=== PATIENT | female | born 1960 | race Caucasian/White ===

== ENCOUNTER → 2017-03-20 | Outpatient (CLI) | payer OTHER ==
[~2017-03-20] MED LIST: ALLEGRA-D 24HOU1 T24 PO; MASON NATURAL2000 IU; SYNTHROID0.088 MG/T PO; TRILIPIX45 MG PO; ZOLOFT 50MG50 MG PO
[2017-03-20 06:43] LABS: BASO # 0.1 (0.0-0.2); BASO % 2.1 % (0.0-2.0); EOS # 0.6 (0.0-0.7); EOS % 9.3 % (0-4.0); GRAN # 2.8 (1.4-6.5); GRAN % 46.3 % (42.2-75.2); HEMOGLOBIN 14.9 g/dl (12.5-16.0); LYMPH # 2.1 (1.2-3.4); LYMPH % 33.6 % (20.0-51.0); MEAN CELL VOLUME 92 fl (80.0-100.0); MEAN CORPUSCULAR HEMOGLOBIN 32 pg (27.0-31.0); MEAN CORPUSCULAR HGB CONC 35 g/dl (33.0-37.0); MEAN PLATELET VOLUME 10.6 fl (7.4-10.4); MONO # 0.5 (0.1-0.6); MONO % 8.5 % (1.7-9.3); PLATELET COUNT 269 K/mm3 (130-400); RED BLOOD COUNT 4.66 M/mm3 (4.10-5.30); REDCELL DISTRIBUTION WIDTH-CV 11.8 % (11.5-14.5); WHITE BLOOD COUNT 6.1 K/mm3 (4.8-10.8)
[2017-03-20 06:58] LABS: PH 5 (5-8); SQUAMOUS EPITHELIAL 0-2 /hpf; URINE APPEARANCE Clear; URINE BACTERIA None Seen /hpf; URINE BILIRUBIN Negative (NEGATIVE); URINE BLOOD 1+ (NEGATIVE); URINE COLOR Yellow; URINE GLUCOSE Negative (NEGATIVE); URINE KETONE Negative (NEGATIVE); URINE RBC 0-2 /hpf; URINE UROBILINOGEN Negative (NEGATIVE); URINE WBC 0-2 /hpf
[2017-03-20 06:58] LABS: ADJUSTED CALCIUM 9.4 mg/dL (8.4-10.2); ALBUMIN 4.1 gm/dL (3.5-5.0); BILIRUBIN,TOTAL 0.7 mg/dL (0.0-1.0); CALCIUM 9.5 mg/dL (8.4-10.2); CREATININE, serum 0.93 mg/dL (0.52-1.25); POTASSIUM 4.2 mmol/L (3.4-5.0)
[2017-03-20 07:10] LABS: TOTAL PROTEIN 6.7 gm/dL (6.4-8.2)
[2017-03-20 07:24] LABS: THYROID STIMULATING HORMONE 2.59 uIU/mL (0.465-4.680)
== END ==
LOC: COL.LAB 06:20
PROVIDERS: Internal Medicine
DX: E03.9 Hypothyroidism, unspecified (principal); E55.9 Vitamin D deficiency, unspecified; Z00.00 Encounter for general adult medical examination without abnormal findings

== ENCOUNTER → 2017-05-23 | Outpatient (CLI) | payer OTHER | LOC: MC.RAD 14:40 | DX: Z12.31 Encounter for screening mammogram for malignant neoplasm of breast (principal) ==

== ENCOUNTER → 2017-05-24 | Outpatient (REF) | LOC: WSOH 08:30 | DX: Z02.89 Encounter for other administrative examinations (principal) ==

== ENCOUNTER → 2017-05-26 | Outpatient (CLI) | payer OTHER | LOC: MC.RAD 13:00 | DX: N63 Unspecified lump in breast (principal) ==

== ENCOUNTER 2017-06-28 09:46 | Emergency (ER) | payer OTHER ==
[~2017-06-28] VITALS: Ht 170.2 cm; Wt 84.1 kg
[~2017-06-28 09:46] MED LIST changes: -MASON NATURAL2000 IU; -TRILIPIX45 MG PO; -ZOLOFT 50MG50 MG PO
[2017-06-28 09:55] VITALS: TEMP 96.9
[2017-06-28] MEDS ORDERED: TRILIPIX45 MG PO (09:59)
[2017-06-28] MEDS ORDERED: MASON NATURAL2000 IU (09:59)
[2017-06-28] MEDS ORDERED: ZOLOFT 50MG50 MG PO (10:00)
[2017-06-28 10:59] LABS: BASO # 0.1 (0.0-0.2); BASO % 1.3 % (0.0-2.0); EOS # 0.4 (0.0-0.7); EOS % 5.1 % (0-4.0); GRAN % 55.8 % (42.2-75.2); HEMATOCRIT 47.3 % (37.0-47.0); LYMPH % 28.8 % (20.0-51.0); MEAN CELL VOLUME 94 fl (80.0-100.0); MEAN CORPUSCULAR HEMOGLOBIN 32 pg (27.0-31.0); MEAN CORPUSCULAR HGB CONC 34 g/dl (33.0-37.0); MEAN PLATELET VOLUME 10.6 fl (7.4-10.4); MONO # 0.6 (0.1-0.6); MONO % 8.4 % (1.7-9.3); PLATELET COUNT 283 K/mm3 (130-400); RED BLOOD COUNT 5.04 M/mm3 (4.10-5.30); REDCELL DISTRIBUTION WIDTH-CV 11.9 % (11.5-14.5); WHITE BLOOD COUNT 7.1 K/mm3 (4.8-10.8)
[2017-06-28 11:03] LABS: CREATININE, serum 0.86 mg/dL (0.52-1.25); POTASSIUM 3.9 mmol/L (3.4-5.0)
[2017-06-28 11:27] VITALS: BP 146/88; PULSE 66
== END 2017-06-28 11:50 | disposition home or self-care (01) ==
LOC: COL.ER 09:46
PROVIDERS: Emergency Medicine
DX: H53.9 Unspecified visual disturbance (principal); I10 Essential (primary) hypertension; G43.109 Migraine with aura, not intractable, without status migrainosus; E03.9 Hypothyroidism, unspecified; H52.209 Unspecified astigmatism, unspecified eye

== ENCOUNTER → 2017-07-11 | Outpatient (REF) ==
[~2017-07-11] MED LIST changes: +MASON NATURAL2000 IU; +TRILIPIX45 MG PO; +ZOLOFT 50MG50 MG PO
== END ==
LOC: WSOH 11:03
DX: Z02.89 Encounter for other administrative examinations (principal)

== ENCOUNTER → 2017-09-04 | Outpatient (CLI) | payer OTHER | LOC: COL.RAD 10:16 | DX: R06.02 Shortness of breath (principal); R91.8 Other nonspecific abnormal finding of lung field ==

== ENCOUNTER → 2018-01-01 | Outpatient (CLI) | payer OTHER | LOC: MC.RAD 07:14 | DX: N63.20 Unspecified lump in the left breast, unspecified quadrant (principal) ==

== ENCOUNTER → 2018-07-19 | Outpatient (CLI) | payer OTHER | LOC: MC.RAD 14:00 | DX: N63.22 Unspecified lump in the left breast, upper inner quadrant (principal) | CPT/HCPCS: G0279 ==

== ENCOUNTER 2018-08-22 06:07 | Emergency (ER) | payer OTHER ==
[~2018-08-22] VITALS: Ht 170.2 cm; Wt 85.5 kg
[2018-08-22 06:10] VITALS: BP 160/72; TEMP 98.1
[2018-08-22] MEDS ORDERED: FLEXERIL 1010 MG/TAB PO (07:09)
[2018-08-22 07:49] VITALS: PULSE 61
== END 2018-08-22 07:49 | disposition home or self-care (01) ==
LOC: COL.ER 06:07
DX: M25.551 Pain in right hip (principal); M53.3 Sacrococcygeal disorders, not elsewhere classified; E03.9 Hypothyroidism, unspecified; E78.5 Hyperlipidemia, unspecified; V43.52XA Car driver injured in collision with other type car in traffic accident, initial encounter

== ENCOUNTER 2018-08-24 16:18 | Emergency (ER) | payer OTHER ==
[~2018-08-24] VITALS: Ht 170.2 cm; Wt 85.5 kg
[~2018-08-24 16:18] MED LIST changes: +FLEXERIL 1010 MG/TAB PO
[2018-08-24 17:26] LABS: BASO # 0.1 (0.0-0.2); BASO % 1.4 % (0.0-2.0); EOS # 0.7 (0.0-0.7); EOS % 7.1 % (0-4.0); GRAN # 5.2 (1.4-6.5); GRAN % 56.6 % (42.2-75.2); HEMOGLOBIN 14.9 g/dl (12.5-16.0); LYMPH # 2.5 (1.2-3.4); LYMPH % 27.9 % (20.0-51.0); MEAN CELL VOLUME 93 fl (80.0-100.0); MEAN CORPUSCULAR HEMOGLOBIN 32 pg (27.0-31.0); MEAN CORPUSCULAR HGB CONC 34 g/dl (33.0-37.0); MEAN PLATELET VOLUME 10.5 fl (7.4-10.4); MONO # 0.6 (0.1-0.6); MONO % 6.7 % (1.7-9.3); PLATELET COUNT 294 K/mm3 (130-400); RED BLOOD COUNT 4.71 M/mm3 (4.10-5.30)
[2018-08-24 17:38] LABS: ALANINE AMINOTRANSFERASE 28 U/L (9-52); ALBUMIN 4.2 gm/dL (3.5-5.0); ALKALINE PHOSPHATASE 61 U/L (50-136); ANION GAP 7 mmol/L (7-16); AST,SGOT 19 U/L (15-37); BILIRUBIN,TOTAL 0.3 mg/dL (0.0-1.0); BLOOD UREA NITROGEN 17 mg/dL (7-17); C-REACTIVE PROTEIN 0.9 mg/dL (0.0-0.9); CALCIUM 9.4 mg/dL (8.4-10.2); CARBON DIOXIDE 30 mmol/L (22-30); CHLORIDE 105 mmol/L (98-107); CREATININE, serum 0.94 mg/dL (0.52-1.25); GLUCOSE 83 mg/dL (74-106); POTASSIUM 3.7 mmol/L (3.4-5.0); SODIUM 142 mmol/L (137-145); TOTAL PROTEIN 7.2 gm/dL (6.4-8.2)
[2018-08-24 17:47] LABS: TROPONIN-I < 0.012 ng/mL (0.000-0.034)
[2018-08-24 18:05] VITALS: BP 128/64; PULSE 80; TEMP 98.2
[2018-08-24] MEDS ORDERED: MEDROL 4MG DOSPA4 MG PO (18:06)
== END 2018-08-24 18:05 | disposition home or self-care (01) ==
LOC: COL.ER 16:18
PROVIDERS: Emergency Medicine
DX: M54.12 Radiculopathy, cervical region (principal); E78.5 Hyperlipidemia, unspecified
CPT/HCPCS: J7512

== ENCOUNTER → 2018-12-17 | Outpatient (CLI) | payer OTHER ==
[~2018-12-17] MED LIST changes: +MEDROL 4MG DOSPA4 MG PO
[2018-12-17 05:37] LABS: HEMATOCRIT 44.3 % (37.0-47.0); HEMOGLOBIN 15.3 g/dl (12.5-16.0); MEAN CELL VOLUME 93 fl (80.0-100.0); MEAN CORPUSCULAR HEMOGLOBIN 32 pg (27.0-31.0); MEAN CORPUSCULAR HGB CONC 35 g/dl (33.0-37.0); MEAN PLATELET VOLUME 9.7 fl (7.4-10.4); PLATELET COUNT 288 K/mm3 (130-400); RED BLOOD COUNT 4.78 M/mm3 (4.10-5.30); REDCELL DISTRIBUTION WIDTH-CV 11.8 % (11.5-14.5)
[2018-12-17 05:57] LABS: ALBUMIN 4.1 gm/dL (3.5-5.0); BILIRUBIN,TOTAL 0.5 mg/dL (0.0-1.0); CALCIUM 9.4 mg/dL (8.4-10.2); CHOLESTEROL RISK RATIO 5.4; CREATININE, serum 0.87 mg/dL (0.52-1.25); POTASSIUM 4.1 mmol/L (3.4-5.0)
[2018-12-17 06:27] LABS: THYROID STIMULATING HORMONE 20.1 uIU/mL (0.465-4.680)
== END ==
LOC: COL.LAB 05:10
PROVIDERS: Family Medicine
DX: Z01.89 Encounter for other specified special examinations (principal)

== ENCOUNTER → 2019-01-30 | Outpatient (CLI) | payer OTHER ==
[2019-01-30 06:23] LABS: BILIRUBIN,TOTAL 0.3 mg/dL (0.0-1.0); CALCIUM 9.6 mg/dL (8.4-10.2); CREATININE, serum 0.86 mg/dL (0.52-1.25); TOTAL PROTEIN 6.9 gm/dL (6.4-8.2)
[2019-01-30 06:53] LABS: THYROID STIMULATING HORMONE 0.118 uIU/mL (0.465-4.680)
== END ==
LOC: COL.LAB 05:49
PROVIDERS: Family Medicine
DX: E03.9 Hypothyroidism, unspecified (principal); R73.9 Hyperglycemia, unspecified

== ENCOUNTER → 2019-05-10 | Outpatient (CLI) | payer OTHER ==
[2019-05-10 06:52] LABS: MUCOUS Present /lpf; PH 6 (5-8); SQUAMOUS EPITHELIAL 0-2 /hpf; URINE APPEARANCE Cloudy; URINE BACTERIA Moderate /hpf; URINE BILIRUBIN Negative (NEGATIVE); URINE BLOOD 1+ (NEGATIVE); URINE COLOR Yellow; URINE GLUCOSE Negative (NEGATIVE); URINE KETONE Negative (NEGATIVE); URINE LEUKOCYTE ESTERASE 3+ (NEGATIVE); URINE NITRATE Positive (NEGATIVE); URINE PROTEIN(semi-quant) Negative (NEGATIVE); URINE UROBILINOGEN Negative (NEGATIVE); URINE WBC 20-50 /hpf
[2019-05-10 07:00] LABS: COLLECTION METHOD CLEAN CATCH
== END ==
LOC: COL.LAB 05:49
PROVIDERS: Family Medicine
DX: R30.0 Dysuria (principal)

== ENCOUNTER 2019-07-14 14:18 | Emergency (ER) | payer OTHER ==
[~2019-07-14] VITALS: Ht 170.2 cm; Wt 80.5 kg
[2019-07-14 14:28] VITALS: BP 136/63; TEMP 99.1
[2019-07-14] MEDS ORDERED: PREDNISONE20 MG PO (17:02)
[2019-07-14] MEDS ORDERED: LEVAQUIN 5500 MG/TA1 PO (17:02)
[2019-07-14 17:37] VITALS: PULSE 99
== END 2019-07-14 18:06 | disposition home or self-care (01) ==
LOC: COL.ER 14:18
DX: J45.909 Unspecified asthma, uncomplicated (principal); R59.0 Localized enlarged lymph nodes; E03.9 Hypothyroidism, unspecified; F03.90 Unspecified dementia, unspecified severity, without behavioral disturbance, psychotic disturbance, mood disturbance, and anxiety; E78.00 Pure hypercholesterolemia, unspecified
CPT/HCPCS: J7512

== ENCOUNTER → 2019-09-16 | Outpatient (CLI) | payer OTHER ==
[~2019-09-16] MED LIST changes: +LEVAQUIN 5500 MG/TA1 PO; +PREDNISONE20 MG PO
== END ==
LOC: MC.RAD 14:30
DX: Z12.31 Encounter for screening mammogram for malignant neoplasm of breast (principal); R92.2 Inconclusive mammogram

== ENCOUNTER → 2020-04-03 | Outpatient (CLI) | payer OTHER | LOC: COL.RAD 13:51 | DX: M19.012 Primary osteoarthritis, left shoulder (principal); M75.82 Other shoulder lesions, left shoulder ==

== ENCOUNTER → 2020-05-21 | Outpatient (CLI) | payer OTHER ==
[2020-05-21 06:30] LABS: COLLECTION METHOD CLEAN CATCH
[2020-05-21 06:57] LABS: PH 5 (5-8); SQUAMOUS EPITHELIAL None Seen /hpf; URINE APPEARANCE Cloudy; URINE BACTERIA Many /hpf; URINE BILIRUBIN Negative (NEGATIVE); URINE BLOOD 1+ (NEGATIVE); URINE COLOR Yellow; URINE GLUCOSE Negative (NEGATIVE); URINE KETONE Negative (NEGATIVE); URINE LEUKOCYTE ESTERASE 3+ (NEGATIVE); URINE NITRATE Positive (NEGATIVE); URINE PROTEIN(semi-quant) Negative (NEGATIVE); URINE UROBILINOGEN Negative (NEGATIVE)
[2020-05-21 07:34] LABS: ALBUMIN 4.1 gm/dL (3.5-5.0); BILIRUBIN,TOTAL 0.5 mg/dL (0.0-1.0); CALCIUM 9.3 mg/dL (8.4-10.2); CHOLESTEROL RISK RATIO 3.3; CREATININE, serum 0.99 (0.52-1.25)
[2020-05-21 08:03] LABS: THYROID STIMULATING HORMONE 0.407 uIU/mL (0.465-4.680)
== END ==
LOC: COL.LAB 06:15
PROVIDERS: Family Medicine
DX: Z13.9 Encounter for screening, unspecified (principal); E03.9 Hypothyroidism, unspecified

== ENCOUNTER → 2021-01-01 | Outpatient (CLI) | payer OTHER ==
[2021-01-01 05:53] LABS: HEMATOCRIT 44.6 % (37.0-47.0); HEMOGLOBIN 15.1 g/dl (12.5-16.0); MEAN CELL VOLUME 91 fl (80.0-100.0); MEAN CORPUSCULAR HEMOGLOBIN 31 pg (27.0-31.0); MEAN CORPUSCULAR HGB CONC 34 g/dl (33.0-37.0); MEAN PLATELET VOLUME 10.3 fl (7.4-10.4); PLATELET COUNT 329 K/mm3 (130-400)
[2021-01-01 05:58] LABS: ALBUMIN 4.4 gm/dL (3.5-5.0); BILIRUBIN,TOTAL 0.6 mg/dL (0.0-1.0); CALCIUM 9.6 mg/dL (8.4-10.2); CHOLESTEROL RISK RATIO 3.4; CREATININE, serum 0.95 (0.52-1.25); POTASSIUM 4.2 mmol/L (3.4-5.0); TOTAL PROTEIN 7.3 gm/dL (6.4-8.2)
[2021-01-01 06:27] LABS: THYROID STIMULATING HORMONE 0.32 uIU/mL (0.465-4.680)
== END ==
LOC: COL.LAB 05:23
PROVIDERS: Family Medicine
DX: Z01.89 Encounter for other specified special examinations (principal)

== ENCOUNTER → 2021-02-05 | Outpatient (CLI) | payer OTHER ==
[2021-02-05 09:27] LABS: BASO # 0.2 (0.0-0.2); BASO % 1.7 % (0.0-2.0); EOS # 0.9 (0.0-0.7); EOS % 9.4 % (0-4.0); GRAN # 5.5 (1.4-6.5); GRAN % 57.7 % (42.2-75.2); HEMATOCRIT 45.4 % (37.0-47.0); HEMOGLOBIN 15.1 g/dl (12.5-16.0); LYMPH # 2.2 (1.2-3.4); LYMPH % 23.4 % (20.0-51.0); MEAN CELL VOLUME 91 fl (80.0-100.0); MEAN CORPUSCULAR HEMOGLOBIN 30 pg (27.0-31.0); MEAN CORPUSCULAR HGB CONC 33 g/dl (33.0-37.0); MEAN PLATELET VOLUME 10.3 fl (7.4-10.4); MONO # 0.7 (0.1-0.6); MONO % 7.4 % (1.7-9.3); PLATELET COUNT 332 K/mm3 (130-400); RED BLOOD COUNT 4.97 M/mm3 (4.10-5.30); REDCELL DISTRIBUTION WIDTH-CV 11.9 % (11.5-14.5)
== END ==
LOC: COL.LAB 09:15
PROVIDERS: Internal Medicine Pulmonary Disease
DX: J45.40 Moderate persistent asthma, uncomplicated (principal)

== ENCOUNTER → 2021-03-02 | Outpatient (CLI) | payer OTHER | LOC: MC.RAD 02-18 07:00 | DX: Z12.31 Encounter for screening mammogram for malignant neoplasm of breast (principal) ==

== ENCOUNTER → 2021-03-18 | Outpatient (CLI) | payer OTHER | LOC: COL.PUL 03-10 08:00 | DX: J45.40 Moderate persistent asthma, uncomplicated (principal) ==

== ENCOUNTER → 2021-04-01 | Outpatient (CLI) | payer OTHER ==
[2021-04-01 09:51] LABS: COLLECTION METHOD CLEAN CATCH
[2021-04-01 10:56] LABS: MUCOUS Present /lpf; PH 5 (5-8); SQUAMOUS EPITHELIAL 0-2 /hpf; URINE APPEARANCE Cloudy; URINE BACTERIA Rare /hpf; URINE BILIRUBIN Negative (NEGATIVE); URINE BLOOD Negative (NEGATIVE); URINE COLOR Yellow; URINE GLUCOSE Negative (NEGATIVE); URINE KETONE Negative (NEGATIVE); URINE LEUKOCYTE ESTERASE 3+ (NEGATIVE); URINE NITRATE Positive (NEGATIVE); URINE PROTEIN(semi-quant) 1+ (NEGATIVE); URINE UROBILINOGEN Negative (NEGATIVE)
== END ==
LOC: COL.LAB 09:34
PROVIDERS: Family Medicine
DX: R39.15 Urgency of urination (principal); R35.0 Frequency of micturition

== ENCOUNTER → 2021-04-02 | Outpatient (CLI) | payer OTHER ==
[2021-04-02 06:12] LABS: HEMATOCRIT 41.6 % (37.0-47.0); HEMOGLOBIN 13.8 g/dl (12.5-16.0); MEAN CELL VOLUME 90 fl (80.0-100.0); MEAN CORPUSCULAR HEMOGLOBIN 30 pg (27.0-31.0); MEAN CORPUSCULAR HGB CONC 33 g/dl (33.0-37.0); MEAN PLATELET VOLUME 10.4 fl (7.4-10.4); PLATELET COUNT 341 K/mm3 (130-400); RED BLOOD COUNT 4.63 M/mm3 (4.10-5.30); REDCELL DISTRIBUTION WIDTH-CV 12.5 % (11.5-14.5)
[2021-04-02 06:19] LABS: ALBUMIN 4.2 gm/dL (3.5-5.0); BILIRUBIN,TOTAL 0.4 mg/dL (0.0-1.0); CALCIUM 9.5 mg/dL (8.4-10.2); CREATININE, serum 0.92 (0.52-1.25)
[2021-04-02 06:49] LABS: THYROID STIMULATING HORMONE 1.33 uIU/mL (0.465-4.680)
[2021-04-02 07:35] LABS: CHOLESTEROL RISK RATIO 3.6
== END ==
LOC: COL.LAB 05:35
DX: Z00.00 Encounter for general adult medical examination without abnormal findings (principal); E03.9 Hypothyroidism, unspecified; M85.80 Other specified disorders of bone density and structure, unspecified site; E78.1 Pure hyperglyceridemia

== ENCOUNTER → 2021-05-05 | Outpatient (CLI) | payer OTHER | LOC: COL.RAD 05:19 | DX: J45.40 Moderate persistent asthma, uncomplicated (principal) ==

== ENCOUNTER → 2021-10-12 | Outpatient (CLI) | payer OTHER ==
[2021-10-12 07:51] LABS: BASO # 0.1 K/mm3 (0.0-0.2); BASO % 1.1 % (0.0-2.0); EOS # 0.2 K/mm3 (0.0-0.7); GRAN # 5.2 K/mm3 (1.4-6.5); GRAN % 66.8 % (42.2-75.2); HEMOGLOBIN 13.2 g/dl (12.5-16.0); LYMPH # 1.7 K/mm3 (1.2-3.4); LYMPH % 21.6 % (20.0-51.0); MEAN CELL VOLUME 87 fl (80.0-100.0); MEAN CORPUSCULAR HEMOGLOBIN 28 pg (27.0-31.0); MEAN CORPUSCULAR HGB CONC 32 g/dl (33.0-37.0); MEAN PLATELET VOLUME 10.3 fl (7.4-10.4); MONO # 0.6 K/mm3 (0.1-0.6); PLATELET COUNT 337 K/mm3 (130-400); RED BLOOD COUNT 4.69 M/mm3 (4.10-5.30)
== END ==
LOC: COL.LAB 05:54
DX: J45.40 Moderate persistent asthma, uncomplicated (principal)

== ENCOUNTER → 2022-03-14 | Outpatient (CLI) | payer OTHER | LOC: MC.RAD 13:52 | DX: Z12.31 Encounter for screening mammogram for malignant neoplasm of breast (principal) ==

== ENCOUNTER → 2022-03-15 | Outpatient (CLI) | payer OTHER ==
[2022-03-15 11:09] LABS: BASO % 0.2 % (0.0-2.0); GRAN # 8.2 K/mm3 (1.4-6.5); GRAN % 85.7 % (42.2-75.2); HEMATOCRIT 40.6 % (37.0-47.0); HEMOGLOBIN 13.2 g/dl (12.5-16.0); LYMPH # 0.9 K/mm3 (1.2-3.4); LYMPH % 9.9 % (20.0-51.0); MEAN CELL VOLUME 87 fl (80.0-100.0); MEAN CORPUSCULAR HEMOGLOBIN 28 pg (27-31); MEAN CORPUSCULAR HGB CONC 33 g/dl (33.0-37.0); MEAN PLATELET VOLUME 10.1 fl (7.4-10.4); MONO # 0.4 K/mm3 (0.1-0.6); MONO % 3.8 % (1.7-9.3); PLATELET COUNT 351 K/mm3 (130-400); RED BLOOD COUNT 4.69 M/mm3 (4.10-5.30); REDCELL DISTRIBUTION WIDTH-CV 14.5 % (11.5-14.5)
[2022-03-15 11:29] LABS: ALBUMIN 3.9 gm/dL (3.4-4.8); BILIRUBIN,TOTAL 0.6 mg/dL (0.2-1.2); CALCIUM 8.9 mg/dL (8.4-10.2); CHOLESTEROL RISK RATIO 3.2; CREATININE, serum 1.08 mg/dL (0.57-1.11); POTASSIUM 4.3 mmol/L (3.5-4.5); TOTAL PROTEIN 6.7 gm/dL (6.2-8.1)
[2022-03-15 11:50] LABS: THYROID STIMULATING HORMONE 0.555 uIU/mL (0.350-4.940)
== END ==
LOC: COL.LAB 09:53
PROVIDERS: Family Medicine
DX: Z01.89 Encounter for other specified special examinations (principal)

== ENCOUNTER 2022-05-23 07:59 | Day surgery (SDC) | payer OTHER ==
[~2022-05-23] VITALS: Ht 170.2 cm; Wt 80.5 kg
[~2022-05-23 07:59] MED LIST changes: +CLARITIN 1010 MG/TAB PO; +NUCALA100 MG/1 M SQ; +SINGULAIR 110 MG/TAB PO; +TRELEGY ELLIPT1 EACH IH
[2022-05-23 09:56] VITALS: BP 152/74; PULSE 73; TEMP 97.9
[2022-05-23 13:43] VITALS: TEMP 98.2
[2022-05-23 14:23] VITALS: BP 144/60; PULSE 77
[2022-05-23 14:38] VITALS: BP 154/63; PULSE 78
[2022-05-23 14:53] VITALS: BP 146/61; PULSE 81
--- NOTE | 2022-05-23 15:53 | NUR ---
1423: Patient arrived back into bay 2 from PACU. Patient alert and oriented. Report recived from LIYA Jones. Patient requesting applesauce and water. Denies pain or nausea at this time. and daughter at bedside 1445: Patient alert and awake. Tolerating food and drink well. Vital signs stable on room air. States pain is a 2/10 to anterior neck and would like pain medication before discharge. PRN nocro given per MAR. 1300: Patient alert and awake. Tolerating food and drink well. Escorted to restroom with stand by assist. 1305: Patient back to room from restroom. Steady gait. Patient able to void successfully. Patient to get dressed with assistance of . Dressing change done to incision. 4x4s and medipore tape applied. Additional dressing change supplies sent home with patient. 1315: IV removed, coband applied. Went through discharge instructions with patient and family. Questions answered. Denies pain or nausea. Escorted patient to patient entrance via wheelchair with family members. Patient got into personal vehicle and left in the care of her family
== END 2022-05-23 15:30 | disposition home or self-care (01) ==
LOC: SDCO 07:59
DX: Q89.2 Congenital malformations of other endocrine glands (principal)
CPT/HCPCS: J0330; J1100; J1170; J2405; J2704; J3010; J7120

== ENCOUNTER → 2022-06-08 | Outpatient (CLI) | payer OTHER ==
[2022-06-08 08:54] LABS: BASO # 0.1 K/mm3 (0.0-0.2); EOS # 0.1 K/mm3 (0.0-0.7); EOS % 0.6 % (0.0-4.0); GRAN % 77.7 % (42.2-75.2); HEMATOCRIT 38.1 % (37.0-47.0); HEMOGLOBIN 12.1 g/dl (12.5-16.0); LYMPH # 1.5 K/mm3 (1.2-3.4); MEAN CELL VOLUME 86 fl (80.0-100.0); MEAN CORPUSCULAR HEMOGLOBIN 27 pg (27-31); MEAN CORPUSCULAR HGB CONC 32 g/dl (33.0-37.0); MEAN PLATELET VOLUME 10.7 fl (7.4-10.4); MONO # 0.7 K/mm3 (0.1-0.6); MONO % 6.4 % (1.7-9.3); PLATELET COUNT 325 K/mm3 (130-400); RED BLOOD COUNT 4.45 M/mm3 (4.10-5.30); REDCELL DISTRIBUTION WIDTH-CV 14.1 % (11.5-14.5)
== END ==
LOC: COL.LAB 08:34
PROVIDERS: Internal Medicine Pulmonary Disease
DX: D72.19 Other eosinophilia (principal)

== ENCOUNTER → 2023-03-08 | Outpatient (CLI) | payer OTHER ==
[2023-03-08 06:54] LABS: HEMATOCRIT 37.3 % (37.0-47.0); HEMOGLOBIN 11.9 g/dl (12.5-16.0); MEAN CELL VOLUME 79 fl (80.0-100.0); MEAN CORPUSCULAR HEMOGLOBIN 25 pg (27-31); MEAN CORPUSCULAR HGB CONC 32 g/dl (33.0-37.0); MEAN PLATELET VOLUME 10.3 fl (7.4-10.4); PLATELET COUNT 413 K/mm3 (130-400); RED BLOOD COUNT 4.72 M/mm3 (4.10-5.30); REDCELL DISTRIBUTION WIDTH-CV 15.2 % (11.5-14.5)
[2023-03-08 07:05] LABS: ALBUMIN 3.8 gm/dL (3.4-4.8); BILIRUBIN,TOTAL 0.4 mg/dL (0.2-1.2); CALCIUM 9.2 mg/dL (8.4-10.2); CHOLESTEROL RISK RATIO 2.6; CREATININE, serum 0.9 mg/dL (0.57-1.11); POTASSIUM 4.1 mmol/L (3.5-4.5); TOTAL PROTEIN 6.7 gm/dL (6.2-8.1)
[2023-03-08 07:25] LABS: THYROID STIMULATING HORMONE 0.186 uIU/mL (0.350-4.940)
== END ==
LOC: COL.LAB 06:20
PROVIDERS: Family Medicine
DX: J45.40 Moderate persistent asthma, uncomplicated (principal)

== ENCOUNTER → 2024-06-07 | Outpatient (CLI) | payer MEDICARE, OTHER | LOC: MC.RAD 06:53 | DX: Z12.31 Encounter for screening mammogram for malignant neoplasm of breast (principal) ==